=== PATIENT | female | born 1945 | race Caucasian/White ===

== ENCOUNTER → 2016-09-26 | Outpatient (CLI) | payer MEDICARE, OTHER ==
[~2016-09-26] MED LIST: ARIMIDEX1 MG PO; ASPIRIN 81M81 MG/TA2 PO; ASPIRIN E.C. 8181 MG PO; CELEXA 20MG20 MG/TAB PO; CELEXA10 MG PO; CIPRO 250MG TA250 MG PO; CRANBERRY FRUI425 MG PO; DAY QUIL PO; ESTRACE 1MG1 MG/TAB TOP; FLONASE NASAL S16 GM NS; MOTRIN 200200 MG/TAB PO; NORCO 325 MG-7.1 TAB PO; PROTONIX 40MG T40 MG PO; RECLAST5 MG/100 M IV; REFRESH 1 ML1 ML OP; REFRESH PM1 OI1 OP; RELPAX 40MG TAB40 MG PO; RESTASIS 60VL OP; VITAMIN D1000 IU PO
== END ==
LOC: MC.RAD 10:27
DX: Z12.31 Encounter for screening mammogram for malignant neoplasm of breast (principal); R92.8 Other abnormal and inconclusive findings on diagnostic imaging of breast; Z85.3 Personal history of malignant neoplasm of breast

== ENCOUNTER → 2016-10-02 | Outpatient (CLI) | payer MEDICARE, OTHER | LOC: MC.RAD 10:30 | DX: D24.1 Benign neoplasm of right breast (principal); Z85.3 Personal history of malignant neoplasm of breast ==

== ENCOUNTER 2016-12-24 13:12 | Outpatient (CLI) | payer MEDICARE, OTHER ==
[~2016-12-24] VITALS: Ht 167.6 cm; Wt 72.5 kg
[2016-12-24 13:35] VITALS: BP 99/71; PULSE 60; TEMP 98
== END 2016-12-24 14:20 | disposition home or self-care (01) ==
LOC: EUO 13:12
DX: M81.0 Age-related osteoporosis without current pathological fracture (principal); Z79.899 Other long term (current) drug therapy
CPT/HCPCS: J3489

== ENCOUNTER → 2017-11-24 | Outpatient (CLI) | payer MEDICARE, OTHER | LOC: MC.RAD 10-13 10:20 | DX: Z12.31 Encounter for screening mammogram for malignant neoplasm of breast (principal) ==

== ENCOUNTER → 2018-01-25 | Outpatient (CLI) | payer MEDICARE, OTHER ==
[~2018-01-25] MED LIST changes: +MASON NATURAL1200 MG PO; +MIRTAZAPINE7.5 MG PO
[2018-01-25 15:35] VITALS: BP 107/61; PULSE 94; TEMP 97.7
== END ==
LOC: EUO 01-21 15:00
DX: M81.0 Age-related osteoporosis without current pathological fracture (principal)
CPT/HCPCS: J3489

== ENCOUNTER → 2018-08-24 | Outpatient (CLI) | payer MEDICARE, OTHER | LOC: MC.RAD 13:43 | DX: N64.89 Other specified disorders of breast (principal); N64.4 Mastodynia; Z85.3 Personal history of malignant neoplasm of breast; Z98.890 Other specified postprocedural states | CPT/HCPCS: G0279 ==

== ENCOUNTER → 2018-12-07 | Outpatient (CLI) | payer MEDICARE, OTHER | LOC: MC.RAD 16:25 | DX: Z12.31 Encounter for screening mammogram for malignant neoplasm of breast (principal); N64.89 Other specified disorders of breast; Z85.3 Personal history of malignant neoplasm of breast ==

== ENCOUNTER → 2019-09-20 | Outpatient (CLI) | payer MEDICARE, OTHER | LOC: MC.RAD 14:17 | DX: Z12.31 Encounter for screening mammogram for malignant neoplasm of breast (principal); Z98.890 Other specified postprocedural states ==

== ENCOUNTER 2020-10-18 10:17 | Outpatient (CLI) | payer MEDICARE, OTHER ==
[~2020-10-18] VITALS: Ht 167.6 cm; Wt 76.9 kg
[~2020-10-18 10:17] MED LIST changes: -CELEXA 20MG20 MG/TAB PO; +LEXAPRO 10MG10 MG PO
[2020-10-18 10:26] VITALS: BP 111/74; PULSE 59; TEMP 97.9
[2020-10-18] MEDS ORDERED: ARICEPT 5MG PO (13:27)
[2020-10-18] MEDS ORDERED: SINGULAIR 110 MG/TAB PO (14:35)
[2020-10-18] MEDS ORDERED: DITROPAN 5MG TAB5 MG PO (14:36)
== END 2020-10-18 14:38 | disposition home or self-care (01) ==
LOC: EUO 10:17
DX: M81.0 Age-related osteoporosis without current pathological fracture (principal)
CPT/HCPCS: J3489

== ENCOUNTER → 2021-08-30 | Outpatient (CLI) | payer MEDICARE, OTHER ==
[~2021-08-30] MED LIST changes: +ARICEPT 5MG PO; +DITROPAN 5MG TAB5 MG PO; +SINGULAIR 110 MG/TAB PO
== END ==
LOC: MC.RAD 09:48
DX: N63.12 Unspecified lump in the right breast, upper inner quadrant (principal)

== ENCOUNTER 2021-11-12 11:26 | Outpatient (CLI) | payer MEDICARE, OTHER ==
[~2021-11-12] VITALS: Ht 167.6 cm; Wt 77.3 kg
[~2021-11-12 11:26] MED LIST changes: +VITAMIN D31000 I1 PO
[2021-11-12 11:59] VITALS: BP 100/67; PULSE 59; TEMP 98
== END 2021-11-12 17:02 | disposition home or self-care (01) ==
LOC: EUO 11:26
DX: M81.0 Age-related osteoporosis without current pathological fracture (principal)
CPT/HCPCS: J3489